=== PATIENT | male | born 1990 | race Caucasian/White ===

== ENCOUNTER 2017-12-13 13:01 | Emergency (ER) | payer MEDICAID ==
[~2017-12-13] VITALS: Ht 180.3 cm; Wt 88.5 kg
[2017-12-13 14:09] VITALS: BP 130/76
== END 2017-12-13 14:48 | disposition home or self-care (01) ==
LOC: ER 13:02
DX: S83.8X1D Sprain of other specified parts of right knee, subsequent encounter (principal); M23.91 Unspecified internal derangement of right knee; Z79.899 Other long term (current) drug therapy; Z88.6 Allergy status to analgesic agent; Z60.2 Problems related to living alone; X58.XXXD Exposure to other specified factors, subsequent encounter
CPT/HCPCS: 99283; A4606; Z7610